=== PATIENT | male | born 1990 ===

== ENCOUNTER 2021-11-04 20:48 | Emergency (ER) | payer SELFPAY ==
--- NOTE | 2021-11-04 20:59 | PC.NURSE ---
Pt to ER with lab order, was looking for outpatient lab. Pt stated that he did not want to see a physician, was just looking to get labs done. RN gave pt the information needed to find lab and times they are open. no other needs voiced.
== END 2021-11-04 21:00 | disposition left against medical advice (07) ==
LOC: ANHED 21:11
DX: Z53.21 Procedure and treatment not carried out due to patient leaving prior to being seen by health care provider (principal)
CPT/HCPCS: 99199